=== PATIENT | male | born 1950 | race Caucasian/White ===

== ENCOUNTER 2022-10-06 06:06 | Day surgery (SDC) | payer OTHER, MEDICARE ==
[2022-09-30 15:29] VITALS: BMI 31.0
[2022-10-06] MEDS ORDERED: BUPIVACAINE HCL/PF 2.5 MG/ML - 30 ML VIAL IJ ONE (07:24)
[2022-10-06] MEDS ORDERED: PROPOFOL 40 ML ONE (07:33)
[2022-10-06] MEDS ORDERED: MIDAZOLAM HCL 2 MG/2 ML SINGLE DOSE VIAL ONE (07:33)
[2022-10-06] MEDS ORDERED: BUPIVACAINE HCL/PF 0.25% (2.5MG/ML) 10 ML VIAL IJ ONE (07:51)
[2022-10-06] MEDS ORDERED: DEXAMETHASONE SOD PHOSPHATE 4 MG/1 ML VIAL ONE (08:02)
[2022-10-06] MEDS ORDERED: KETOROLAC TROMETHAMINE 30 MG/1 ML VIAL ONE (08:02)
[2022-10-06] MEDS ORDERED: ONDANSETRON 4 MG/2 ML VIAL ONE (08:02)
[2022-10-06] MEDS ORDERED: ONDANSETRON 4 MG/2 ML VIAL IVPUSH PRN (08:14)
[2022-10-06] MEDS ORDERED: ACETAMINOPHEN 1000 MG/100 ML BAG IVPB ONE (08:15)
[2022-10-06] MEDS ORDERED: LACTATED RINGERS SOLUTION 1,000 ML IV SCH (08:15)
[2022-10-06 08:47] VITALS: RESP 16
[2022-10-06 09:25] VITALS: TEMP 97.8
[2022-10-06 09:41] VITALS: BP 135/58; PULSE 50
== END 2022-10-06 10:07 | disposition home or self-care (01) ==
LOC: FASU 06:06
PROVIDERS: ATTEND Orthopaedic Surgery
PROC: 0SBD4ZZ Excision of Left Knee Joint, Percutaneous Endoscopic Approach (ICD-10-PCS; principal; 2022-10-06 07:51)
DX: S83.242A Other tear of medial meniscus, current injury, left knee, initial encounter (principal); X58.XXXA Exposure to other specified factors, initial encounter; Y93.9 Activity, unspecified; Y92.9 Unspecified place or not applicable
CPT/HCPCS: 94760

== ENCOUNTER 2023-05-06 06:11 | Day surgery (SDC) | payer OTHER, MEDICARE ==
[2023-04-29 13:03] VITALS: BMI 31.0
[2023-05-06 07:05] VITALS: RESP 18
[2023-05-06] MEDS ORDERED: LIDOCAINE HCL 2% (20ML MULTI-DOSE VIAL) ONE (07:17)
[2023-05-06] MEDS ORDERED: MIDAZOLAM HCL 2 MG/2 ML SINGLE DOSE VIAL ONE (07:55)
[2023-05-06] MEDS ORDERED: PROPOFOL 20 ML ONE (07:55)
[2023-05-06] MEDS ORDERED: ePHEDrine SULFATE 50 MG/1 ML AMPULE ONE (08:19)
[2023-05-06 09:06] VITALS: BP 98/56; PULSE 58; TEMP 98
== END 2023-05-06 09:30 | disposition home or self-care (01) ==
LOC: FASU 06:11
PROVIDERS: ATTEND Orthopaedic Surgery Hand Surgery
PROC: 0LN70ZZ Release Right Hand Tendon, Open Approach (ICD-10-PCS; principal; 2023-05-06 08:17)
DX: M65.351 Trigger finger, right little finger (principal)